=== PATIENT | female | born 1965 | race Two or more races ===

== ENCOUNTER 2017-09-03 12:14 | Emergency (ER) | payer OTHER ==
[~2017-09-03] VITALS: Ht 162.6 cm; Wt 54.9 kg
--- NOTE | 2017-09-03 12:29 | NUR ---
JANIE FROM [facility] DT NOSE AND LOWER LIP WOUNDS FROM UNKNOWN ETIOLOGY. PER PT SHE HAD THE WPUND DRYNESS AND WOUND X 3 DAYS AND NOSE BRIDGE WOUND SINCE YESTERDAY. PT DENIES PAIN, CO ITCHINESS. PT IS AFEBRILE. VSS
--- NOTE | 2017-09-03 12:30 | NUR ---
TICKET CLERK AT BEDSIDE
--- NOTE | 2017-09-03 12:31 | NUR ---
PT WAS TAKEN TO CT
[2017-09-03 12:38] LABS: BASOPHILS % (AUTO) 0.7 % (0.0-2.0); EOSINOPHILS # (AUTO) 0.1 /CMM (0.0-0.7); EOSINOPHILS % (AUTO) 0.9 % (0.0-6.0); HEMATOCRIT 32 % (33-45); HEMOGLOBIN 10.9 g/dL (11.5-14.8); LYMPHOCYTES # (AUTO) 1.1 /CMM (0.8-4.8); LYMPHOCYTES % (AUTO) 17.2 % (20.0-44.0); MEAN CORPUSCULAR HEMOGLOBIN 33 PG (26.0-33.0); MEAN CORPUSCULAR HGB CONC 34 g/dl (31.0-36.0); MEAN CORPUSCULAR VOLUME 97 fL (82-100); MONOCYTES # (AUTO) 0.7 /CMM (0.1-1.30); NEUTROPHILS # (AUTO) 4.6 /CMM (1.8-8.9); NEUTROPHILS % (AUTO) 70.2 % (43.0-81.0); PLATELET COUNT (AUTO) 144 /CMM (150-450); RDW COEFFICIENT OF VARIATION 13.8 (11.5-15.0); RED BLOOD CELL COUNT(AUTO) 3.29 MIL/uL (4.0-5.2); WHITE BLOOD COUNT (AUTO) 6.5 K/uL (4.3-11.0)
[2017-09-03 12:55] LABS: CALCIUM, SERUM 8.2 mg/dL (8.5-10.1); CREATININE 0.5 mg/dL (0.6-1.3); POTASSIUM 3.4 mmol/L (3.5-5.1)
[2017-09-03 13:27] VITALS: BP 120/80
--- NOTE | 2017-09-03 13:27 | NUR ---
Patient discharged to home in stable condition. Written and verbal after care instructions given. Patient verbalizes understanding of instruction.
== END 2017-09-03 13:28 | disposition home or self-care (01) ==
LOC: ER 12:17
DX: S00.31XA Abrasion of nose, initial encounter (principal); R51 Headache; X58.XXXA Exposure to other specified factors, initial encounter; Y93.89 Activity, other specified; Y92.89 Other specified places as the place of occurrence of the external cause; Y99.8 Other external cause status
CPT/HCPCS: 36415; 70450-TC; 80048-TC; 85025-TC; A4606; Z7610

== ENCOUNTER 2019-09-13 14:20 | Inpatient (IN) | payer OTHER ==
[~2019-09-13] VITALS: Ht 157.5 cm; Wt 51.7 kg
--- NOTE | 2019-09-13 14:28 | NUR ---
[id number], homeless, c/o abd pain and constipation x 5 days. ABDOMEN IS SOFT AND DISTENDED, REPORTS PAIN LEVEL 10/10, OBVIOUS DISCOMFORT. RR EVEN AND UNLABORED ON RA. NO ACUTE DISTRESS NOTED. LANGUAGE BARRIER, BUT UNDERSTANDS SOME TAMAZIGHT. APPEARS DISHEVELED AND UNKEMPT. ON MONITOR, MADE COMFORTABLE, AND READY FOR EVAL.
[2019-09-13] MEDS ORDERED: BISACODYL SUPP (10 MG) 10 MG/SUPP.RECT SUPP.RECT RC ONE ×2 (14:50→15:00)
[2019-09-13] MEDS ORDERED: IV NS 0.9% 1,000 ML BAG IV ONE (15:00)
[2019-09-13] MEDS ORDERED: NA PHOS,M-B/NA PHOS,DI-BA 1 EA ENEMA RC ONE ×2 (15:00→15:43)
--- NOTE | 2019-09-13 15:07 | NUR ---
IV BECAME DISLODGED. Catheter intact and site benign. Pressure and 4x4 applied to site. No bleeding noted.
--- NOTE | 2019-09-13 15:15 | NUR ---
IV ACCESS OBTAINED, BLOOD DRAWN, IVF INFUSING. PT SUNDAY WELL.
[2019-09-13 15:21] LABS: BASOPHILS # (AUTO) 0.1 /CMM (0.0-0.2); BASOPHILS % (AUTO) 0.9 % (0.0-2.0); HEMATOCRIT 36 % (33-45); HEMOGLOBIN 11.9 g/dL (11.5-14.8); LYMPHOCYTES # (AUTO) 0.8 /CMM (0.8-4.8); LYMPHOCYTES % (AUTO) 9.9 % (20.0-44.0); MEAN CORPUSCULAR HGB CONC 33 g/dl (31.0-36.0); MEAN CORPUSCULAR VOLUME 109 fL (82-100); MONOCYTES # (AUTO) 0.3 /CMM (0.1-1.30); MONOCYTES % (AUTO) 4.4 % (2.0-12.0); NEUTROPHILS # (AUTO) 6.4 /CMM (1.8-8.9); NEUTROPHILS % (AUTO) 83.8 % (43.0-81.0); PLATELET COUNT (AUTO) 123 /CMM (150-450); WHITE BLOOD COUNT (AUTO) 7.7 K/uL (4.3-11.0)
[2019-09-13 15:50] LABS: MAGNESIUM 1.1 mg/dL (1.8-2.4)
[2019-09-13 15:52] LABS: CALCIUM, SERUM 8.4 mg/dL (8.5-10.1); CREATININE 0.6 mg/dL (0.6-1.3); POTASSIUM 3.2 mmol/L (3.5-5.1)
[2019-09-13 15:58] LABS: ALBUMIN 2.6 g/dL (3.4-5.0); BAND % (MANUAL) 3 % (0.0-5.0); BILIRUBIN,DIRECT 0.4 mg/dL (0.0-0.2); BILIRUBIN,TOTAL 0.5 mg/dL (0.2-1.0); EOSINOPHILS % (MANUAL) 1 % (0-4); LYMPHOCYTES % (MANUAL) 13 % (16-48); MONOCYTES % (MANUAL) 4 % (0-11.0); NEUTROPHILS % (MANUAL) 79 (42-76)
--- NOTE | 2019-09-13 16:15 | NUR ---
IV DISLODGED. Catheter intact and site benign. Pressure and 4x4 applied to site. No bleeding noted. MD AWARE
--- NOTE | 2019-09-13 16:33 | NUR ---
NEW IV PLACED. PT EDUCATED TO BE MINDFUL WHEN MOVING AROUND IN ORDER TO PREVENT ANOTHER DISLODGE
[2019-09-13] MEDS: Magnesium 1GM/D5W 100ML PREMIX 100 ML IV SCH ×2 (16:58→18:19)
--- NOTE | 2019-09-13 17:04 | NUR ---
PT TAKEN TO RADIOLOGY VIA [facility]
--- NOTE | 2019-09-13 17:30 | NUR ---
PAGED [facility].
[2019-09-13] MEDS ORDERED: Magnesium 1GM/D5W 100ML PREMIX 100 ML IV ONE (17:40)
[2019-09-13] MEDS: POTASSIUM CL. PREMIX PERIPHER. 50 ML IV SCH ×3 (18:10→20:44)
[2019-09-13 18:20] LABS: APPEARANCE,URINE CLEAR (CLEAR); BILIRUBIN,URINE NEGATIVE (NEGATIVE); BLOOD, URINE TRACE Ery/uL (NEGATIVE); COLOR,URINE YELLOW (YELLOW); KETONES,URINE NEGATIVE (NEGATIVE); LEUKOCYTE ESTERASE ,URINE NEGATIVE (NEGATIVE); NITRITE, URINE NEGATIVE (NEGATIVE); PH,URINE 6.5 (5.0-8.0); PROTEIN,URINE NEGATIVE (NEGATIVE); UGLUCOSE NEGATIVE (NEGATIVE)
[2019-09-13 18:34] LABS: BACTERIA,URINE None seen /HPF (None Seen); RBC,URINE 0-2 /HPF (0-2); SQUAMOUS EPITHELIAL CELL,UR Few /HPF (None Seen); WBC,URINE NONE SEEN /HPF (0-3)
--- NOTE | 2019-09-13 18:35 | NUR ---
SPOKE WITH BUTTER GRADER AND GAVE UPDATE ON PT CONDITION
[2019-09-13] MEDS ORDERED: Z GUARD REMEDY 2 OZ OINT TP PRN (19:00)
[2019-09-13] MEDS ORDERED: ONDANSETRON HCL/PF 4 MG/2 ML VIAL IVP PRN (19:00)
[2019-09-13] MEDS ORDERED: MAG HYDROX/AL HYDROX/SIMETH 30 ML UDC PO PRN (19:00)
[2019-09-13] MEDS ORDERED: ACETAMINOPHEN 325 MG TABLET PO PRN (19:00)
[2019-09-13] MEDS ORDERED: MAGNESIUM HYDROXIDE 30 ML UDC PO PRN (19:00)
--- NOTE | 2019-09-13 19:50 | NUR ---
REPORT GIVEN TO NASRA CAT FOR 119-1
[2019-09-13 20:10] VITALS: BP 121/88
--- NOTE | 2019-09-13 20:20 | NUR ---
RN YARI NOTES, ADMITTED 54 YO FEMALE ADMITTED FROM ER DEPARTMENT ACCOMPANIED BY 2 NURSES VIA STRETCHER, UNDER MEDICAL SERVICES OF DR SULLIVAN, WITH DX OF ELECTROLYTES ABNORMALITIES AND PROCTITIS, PATIENT AWAKE, A/O ABLE TO VERBALIZED NEEDS AND CONCERNS, DENIES ANY MEDICAL HX, NOTED WITH ABDOMEN SOFT AND NON TENDER, BUT SLIGHTLY DISTENDED, C/O ABDOMINAL PAIN, 4/10, 121/88, 110, 19, 99% RA, STATES SHE CAN'T WALK ANYMORE, FOR PAIN IN THE FEET, BED BATH GIVEN UPON ADMISSION AND NOTED VERY SMALL LIQUID BM, CALL LIGHT W/I REACH, BED LOCKED IN LOW POSITION, WILL CONTINUE TO MONITOR CLOSELY.
--- NOTE | 2019-09-13 20:44 | NUR ---
RN NOTES, LAST BAG OF KCL ADMINISTERED AT THIS TIME.
[2019-09-13] MEDS: HYDROCODONE/APAP 5/325MG 1 EACH TABLET PO PRN (22:41)
[2019-09-14] VITALS: BP 151/90
[2019-09-14] MEDS: ZOLPIDEM TARTRATE 5 MG TABLET PO PRN (00:08)
[2019-09-14 04:00] VITALS: BP 152/100
[2019-09-14] MEDS: HYDROCODONE/APAP 5/325MG 1 EACH TABLET PO PRN (04:07)
[2019-09-14] MEDS: hydrALAZINE HCL IV 20 MG VIAL IV PRN ×2 (05:33→10:25)
--- NOTE | 2019-09-14 05:35 | NUR ---
RN NOTES, PATIENT NOTED WITH BLOOD PRESSURE 197/112, RECHECKED AND 178/110, INFORMED JOSEPHINE PROOFSHEET CORRECTOR AND RECEIVED A NEW ORDER FOR HYDRALAZINE IVP 10MG Q4HRS PRN FPR SBP >160, NOTED AND CARRIED OUT.
--- NOTE | 2019-09-14 06:30 | NUR ---
RN NOTES, AFTER RECHECK OF BP, BP NOTED 150/88, 105, WILL CONTINUE TO MONITOR CLOSELY, OTHERWISE NO SIGNIFICANT CHANGE DURING THE NIGHT, WILL ENDORSE CONTINUITY OF CARE TO ONCOMING NURSE.
[2019-09-14 06:41] LABS: BASOPHILS % (AUTO) 0.2 % (0.0-2.0); EOSINOPHILS % (AUTO) 0.2 % (0.0-6.0); HEMATOCRIT 36 % (33-45); LYMPHOCYTES # (AUTO) 0.8 /CMM (0.8-4.8); MEAN CORPUSCULAR HGB CONC 33 g/dl (31.0-36.0); MEAN CORPUSCULAR VOLUME 106 fL (82-100); MONOCYTES # (AUTO) 0.8 /CMM (0.1-1.30); MONOCYTES % (AUTO) 6.3 % (2.0-12.0); NEUTROPHILS # (AUTO) 11.1 /CMM (1.8-8.9); NEUTROPHILS % (AUTO) 87.3 % (43.0-81.0); PLATELET COUNT (AUTO) 111 /CMM (150-450); RED BLOOD CELL COUNT(AUTO) 3.43 MIL/uL (4.0-5.2); WHITE BLOOD COUNT (AUTO) 12.7 K/uL (4.3-11.0)
[2019-09-14 07:08] LABS: ALBUMIN 2.7 g/dL (3.4-5.0); BILIRUBIN,DIRECT 0.7 mg/dL (0.0-0.2); BILIRUBIN,TOTAL 1.2 mg/dL (0.2-1.0); CALCIUM, SERUM 8.3 mg/dL (8.5-10.1); CREATININE 0.5 mg/dL (0.6-1.3); PHOSPHORUS 3.4 mg/dL (2.5-4.9); POTASSIUM 3.5 mmol/L (3.5-5.1)
[2019-09-14 07:12] LABS: MAGNESIUM 1.1 mg/dL (1.8-2.4)
[2019-09-14 07:22] LABS: THYROID STIMULATING HORMONE 4.802 uIU/mL (0.358-3.74)
--- NOTE | 2019-09-14 07:30 | NUR ---
COUPON COLLECTION CLERK OPENING NOTE RECEIVED BEDSIDE REPORT. PT AWAKE IN BED, ALERT AND ORIENTED X 2, SINUS RHYTHM ON TELE MONITOR, ON ROOM AIR, SATURATING WELL, RESPIRATIONS EVEN AND UNLABORED, NO SIGNS OF RESPIRATORY DISTRESS NOTED. IV SITE ON RIGHT AC G20 INTACT, PATENT, WITH HEP LOCK IN PLACE. IV SITE ON LEFT AC G20 INTACT, PATENT, WITH HEP LOCK IN PLACE. BED IN LOW POSITION, LOCKED, CALL LIGHT WITHIN REACH.
[2019-09-14] MEDS: PANTOPRAZOLE 40 MG TABLET.DR PO SCH (07:34)
[2019-09-14 08:00] VITALS: BP 160/93
[2019-09-14] MEDS: Magnesium 1GM/D5W 100ML PREMIX 100 ML IV SCH ×4 (09:14→12:37)
[2019-09-14] MEDS ORDERED: MAGNESIUM CITRATE 296 ML BOTTLE PO ONE (13:00)
[2019-09-14] MEDS ORDERED: NA PHOS,M-B/NA PHOS,DI-BA 1 EA ENEMA RC PRN (13:00)
[2019-09-14] MEDS ORDERED: BISACODYL (5 MG) 5 MG TABLET.DR PO PRN (13:00)
[2019-09-14] MEDS: MULTIVITAMINS,THERAGRAN 1 UDTAB TABLET PO SCH (13:24)
[2019-09-14] MEDS: THIAMINE HCL 100 MG TABLET PO SCH (13:24)
[2019-09-14] MEDS: FOLIC ACID 1 MG TABLET PO SCH (13:25)
--- NOTE | 2019-09-14 14:17 | NUR ---
Social service consult requested by MD for homelessness. Per MD notes and chart review, pt is a 54-year-old female, who presented to the ER because of diffuse abdominal pain and constipation for the last 5 days, as well as symptoms previously. She denies fever, chills, neck pain, chest pain, dyspnea, vomiting, dysuria. Pt was found to have stercoral proctitis per CT abdomen/pelvis as noted as well as esophagitis and also found to have magnesium of 1.1 as well as potassium 3.4. SURGERY TECHNICIAN met with the pt bedside. Pt's boyfriend Guicho was bedside. SURGERY TECHNICIAN introduced self and purpose of the visit. Pt gave permission to speak with her with boyfriend present. Pt states she is homeless and has been for a longtime. Pt appears disheveled and unkempt. Pt reports to live on the streets with her boyfriend. [facility] offered pt winter penitentiary placement, however pt declined stating, " too many people in the penitentiary." Both pt and boyfriend stated, they will go back to the streets. Pt reports she is independent with most ADL's. However, pt states she is unable to walk and is having trouble walking. SURGERY TECHNICIAN informed pt, she will refer her to physical therapy. Pt. receives GR and Food stamps monthly. Pt denies drug use. Pt drinks 1/2 a bottle of vodka daily. Pt. reports, she smokes 10 cigarettes per day but when stressed, pt reports to smoke a pack a day. Pt denies any psychiatric diagnosis and hospitalizations. Pt denies suicidal and homicidal ideations and visual/auditory hallucinations at this time. [facility] provided pt with active listening and supportive counseling. [facility] provided pt with homeless packet which includes [facility] [id number] Winter Fpc program list, [facility] [place], [address] ; [facility] Homeless Resource Directory which includes food stamps, transitional housing, showers and hot meals etc; Mental Health clinics such as [facility] ; [facility] ; Health clinics;[facility] and Addiction resources such as [facility], ; [facility] Substance Abuse Hotline and [facility] . Homeless patient waiver form was placed in pt's chart for pt. to sign upon discharge. Pt declined TAP card. SURGERY TECHNICIAN updated JAIME CRN Kayleigh regarding pt's discharge plan. SURGERY TECHNICIAN also updated cyanide case hardener Emani and JAIME CRN Kayleigh regarding pt stating she is unable to walk and for pt to have a Physical Therapy consult. No other social service needs are requested at this time. SURGERY TECHNICIAN is available, if needed.
[2019-09-14 16:00] VITALS: BP 138/90
[2019-09-14] MEDS: CHLORDIAZEPOXIDE HCL 25 MG CAPSULE PO SCH (16:15)
--- NOTE | 2019-09-14 19:30 | NUR ---
RN NOTES, PATIENT AWAKE IN BED AT THIS TIME WATCHING TV, AT RA BREATHING EVEN AND UNLABORED, NO SOB/ACUTE RESPIRATORY DISTRESS NOTED AT THIS TIME, NO C/O PAIN OR DISCOMFORT AT THIS TIME, IV ACCESS IN RIGHT AND LEFT AC 20G S/L, PATENT AND INTACT, ALL SAFETY MEASURES IMPLEMENTED, BED LOCKED, AND LOWEST POSITION, SIDE RAILS UP X3, CALL LIGHT WITHIN REACH, WILL CONTINUE TO MONITOR CLOSELY.
[2019-09-14 20:00] VITALS: BP 147/88
[2019-09-15] MEDS: ZOLPIDEM TARTRATE 5 MG TABLET PO PRN (00:52)
[2019-09-15 04:00] VITALS: BP_SYST 108; BP_DIAS 56; BP_DIAS 86
[2019-09-15 06:44] LABS: BASOPHILS % (AUTO) 0.3 % (0.0-2.0); EOSINOPHILS % (AUTO) 1.7 % (0.0-6.0); HEMATOCRIT 35 % (33-45); HEMOGLOBIN 11.5 g/dL (11.5-14.8); LYMPHOCYTES # (AUTO) 0.6 /CMM (0.8-4.8); MEAN CORPUSCULAR HGB CONC 33 g/dl (31.0-36.0); MEAN CORPUSCULAR VOLUME 107 fL (82-100); MONOCYTES # (AUTO) 0.6 /CMM (0.1-1.30); MONOCYTES % (AUTO) 7.2 % (2.0-12.0); NEUTROPHILS # (AUTO) 7.2 /CMM (1.8-8.9); NEUTROPHILS % (AUTO) 83.8 % (43.0-81.0); PLATELET COUNT (AUTO) 96 /CMM (150-450); RED BLOOD CELL COUNT(AUTO) 3.26 MIL/uL (4.0-5.2); WHITE BLOOD COUNT (AUTO) 8.6 K/uL (4.3-11.0)
--- NOTE | 2019-09-15 07:00 | NUR ---
RN NOTES, PATIENT SLEEPING AT THIS TIME, NO SOB/ACUTE DISTRESS NOTED, NO C/O PAIN OR DISCOMFORT, 3 BM LAST NIGHT, NO SIGNIFICANT CHANGE DURING THE NIGHT, WILL ENDORSE CONTINUITY OF CARE TO ONCOMING NURSE.
[2019-09-15 07:24] LABS: CALCIUM, SERUM 8.5 mg/dL (8.5-10.1); CREATININE 0.5 mg/dL (0.6-1.3); MAGNESIUM 1.9 mg/dL (1.8-2.4); PHOSPHORUS 2.7 mg/dL (2.5-4.9); POTASSIUM 3.6 mmol/L (3.5-5.1)
[2019-09-15] MEDS: PANTOPRAZOLE 40 MG TABLET.DR PO SCH (07:55)
[2019-09-15] MEDS ORDERED: NA PHOS,M-B/NA PHOS,DI-BA 1 EA ENEMA RC PRN (07:57)
[2019-09-15 08:00] VITALS: BP 143/101
--- NOTE | 2019-09-15 08:00 | NUR ---
MS RN Notes Received patient in bed from second shift supervisor. Patient is alert and oriented to person and place. REGGIE 3mm. On report hand off informed of patient ETOH WD. AM BP at 0800 was 143/101 P. 115 and second reading 158/94 P. 105. Provider informed. Patient is on bedrest. Skin intact with some redness noted in perineum. Blanchable. Client is a fall risk with bed alarm set. She is on cardiac diet. BM x1 in AM. S1 S2 IV LAC 20g flushing well, saline locked. VS Q8H. Bed in lowest position, call light with reach, all measures taken to ensure client safety. Will continue to monitor.,
--- NOTE | 2019-09-15 08:03 | NUR ---
WOUND CARE CONSULT: PT PRESENTS WITH MULTIPLE AREAS OF BRUISING/DISCOLORATION PRESENT ON ADMISSION. PT ABLE TO TURN AND REPOSITION IN BED AND IS MOSTLY CONTINENT AT THIS TIME. RECOMMENDATIONS MADE FOR SKIN PROTECTION. DISCUSSED WITH NURSING STAFF. WILL SEE PRN. BYNUM IN AGREEMENT WITH PLAN OF CARE. Addendum: 09/15/19 at 0805 by TUCKER ROSA WNDNU Amended: Links added.
[2019-09-15 08:08] LABS: LYMPHOCYTES % (MANUAL) 8 % (16-48); MONOCYTES % (MANUAL) 5 % (0-11.0); NEUTROPHILS % (MANUAL) 87 (42-76)
[2019-09-15] MEDS: MULTIVITAMINS,THERAGRAN 1 UDTAB TABLET PO SCH (09:12)
[2019-09-15] MEDS: THIAMINE HCL 100 MG TABLET PO SCH (09:12)
[2019-09-15] MEDS: CHLORDIAZEPOXIDE HCL 25 MG CAPSULE PO SCH ×2 (09:13→17:29)
[2019-09-15] MEDS: FOLIC ACID 1 MG TABLET PO SCH (09:13)
--- NOTE | 2019-09-15 09:20 | NUR ---
MS RN Notes Provider Omari Colón notified for initial BP of 143/101 P. 115. And second measurement half hour later of 158/94 P.105. No orders received at this time. Awaiting reply.
--- NOTE | 2019-09-15 10:00 | NUR ---
MS RN Notes BP rechecked 140/89 P.101. Patient asymptomatic.
[2019-09-15] MEDS ORDERED: IV NS 0.9% 1,000 ML IV PRN (11:00)
[2019-09-15 12:00] VITALS: BP 139/92
[2019-09-15] MEDS ORDERED: CLONIDINE HCL 0.1 MG TABLET PO PRN (16:30)
[2019-09-15 17:23] VITALS: BP 136/87
--- NOTE | 2019-09-15 19:08 | NUR ---
MS RN Closing Notes Patient is alert and oriented x3. Per report and conversation with LINE TECHNICIAN, client is having alcohol withdrawals. BP labile in AM, LINE TECHNICIAN Omari Colón notified. BP issue resolved after receiving 0900 dose of Librium. On or around 1200 patient IV seen at bedside table, visible bruise at IV site, she insisted she was going home and that the charge nurse D/Cd IV. LINE TECHNICIAN Informed. Per charge nurse advice IV not continued again. LINE TECHNICIAN to switch all medication to PO. Patient tolerating drinking water at this time with no NV. Patient is currently in bed, boyfriend is at bedside. No s/s of acute distress. No tremors visible in hands. No complains of pain or abnormal sensations. Bed in lowest position, call light within reach. All measures taken to ensure client safety. Will endorse care to oncoming shift.
[2019-09-15 20:00] VITALS: BP 144/85
[2019-09-16 04:00] VITALS: BP 152/96
[2019-09-16 06:43] LABS: BASOPHILS % (AUTO) 0.4 % (0.0-2.0); EOSINOPHILS % (AUTO) 3.4 % (0.0-6.0); HEMATOCRIT 35 % (33-45); HEMOGLOBIN 11.4 g/dL (11.5-14.8); LYMPHOCYTES # (AUTO) 0.7 /CMM (0.8-4.8); LYMPHOCYTES % (AUTO) 9.7 % (20.0-44.0); MEAN CORPUSCULAR HGB CONC 33 g/dl (31.0-36.0); MEAN CORPUSCULAR VOLUME 107 fL (82-100); MONOCYTES # (AUTO) 0.6 /CMM (0.1-1.30); MONOCYTES % (AUTO) 8.4 % (2.0-12.0); NEUTROPHILS # (AUTO) 5.4 /CMM (1.8-8.9); NEUTROPHILS % (AUTO) 78.1 % (43.0-81.0); PLATELET COUNT (AUTO) 103 /CMM (150-450); RED BLOOD CELL COUNT(AUTO) 3.23 MIL/uL (4.0-5.2); WHITE BLOOD COUNT (AUTO) 6.9 K/uL (4.3-11.0)
--- NOTE | 2019-09-16 06:51 | NUR ---
MS RN NOTES AWAKE & RESPONSIVE. NOT IN ANY DISTRESS. NO SOB NOTED. DENIES ANY PAIN OR DISCOMFORT AT THIS TIME. AM CARE DONE. MONITORED ACCORDINGLY. CALL LIGHT WITHIN REACH. BED IN LOWEST POSITION. SR UP X 2 WITH BED ALARM ON FOR SAFETY. WILL ENDORSE TO NEXT SHIFT.
[2019-09-16 07:01] LABS: CALCIUM, SERUM 8.7 mg/dL (8.5-10.1); CREATININE 0.5 mg/dL (0.6-1.3); POTASSIUM 3.8 mmol/L (3.5-5.1)
--- NOTE | 2019-09-16 07:50 | NUR ---
RN OPENING NOTE: RECEIVED PATIENT IN BED THIS MORNING. PATIENT IS ALERT X3, RESPONDS APPROPRIATELY. NO SIGNS OF RESPIRATORY DISTRESS NOTED, SATING WELL ON RA. C/O 7/10 PAIN. SAFETY MEASURES IMPLEMENTED, BED IN LOWEST POSITION, LOCKED, SIDE RAILS UP X2, CALL LIGHT WITHIN REACH. WILL CONTINUE TO MONITOR PATIENT FOR CHANGES.
[2019-09-16 08:00] VITALS: BP 146/91
[2019-09-16] MEDS: CHLORDIAZEPOXIDE HCL 25 MG CAPSULE PO SCH ×2 (08:28→17:02)
[2019-09-16] MEDS: PANTOPRAZOLE 40 MG TABLET.DR PO SCH (08:28)
[2019-09-16] MEDS: FOLIC ACID 1 MG TABLET PO SCH (08:28)
[2019-09-16] MEDS: THIAMINE HCL 100 MG TABLET PO SCH (08:28)
[2019-09-16] MEDS: MULTIVITAMINS,THERAGRAN 1 UDTAB TABLET PO SCH (08:28)
[2019-09-16] MEDS: HYDROCODONE/APAP 5/325MG 1 EACH TABLET PO PRN ×2 (08:29→15:04)
[2019-09-16] MEDS ORDERED: LORA-259 PO (10:23)
[2019-09-16] MEDS ORDERED: PANT40TA2 PO (10:23)
[2019-09-16] MEDS ORDERED: MULT-24 PO (10:23)
[2019-09-16] MEDS ORDERED: Folic Acid PO (10:23)
[2019-09-16] MEDS ORDERED: Thiamine HCL PO (10:23)
[2019-09-16] MEDS ORDERED: BISA5TAB10 PO (10:23)
[2019-09-16] MEDS ORDERED: CLON0.1T14 PO (10:23)
[2019-09-16 16:00] VITALS: BP 137/93
[2019-09-16 17:44] VITALS: BP 137/93
--- NOTE | 2019-09-16 17:54 | NUR ---
PATIENT IS SUPPOSED TO BE GETTING DC TODAY TO SNF. AT FIRST PATIENT WAS OK WITH THE IDEA, I GOT HER DC PAPERWORK READY, PATIENT STATED SHE DOESNT WANT TO GO TO A SNF AND INFORMED CM SHE WOULD RATHER DISCUSS HER OPTIONS WITH HER BOYFRIEND THAT IS COMING TO THE HOSPITAL. WILL ENDORSE TO ONCROSETTE MILLER THAT WE ARE AWAITING AN ANSWER ABOUT PATIENT'S DECISION PERTAINING DC.
--- NOTE | 2019-09-16 18:42 | NUR ---
RN CLOSING NOTE: PATIENT IS CURRENTLY RESTING IN BED. NO SIGNS OF RESPIRATORY DISTRESS NOTED. NO SIGNS OF ACUTE DISTRESS NOTED. PATIENT IS FOR DC BUT AWAITING BOYFRIEND TO MAKE DECISION ON WHETHER PATIENT WANTS TO DC TO SNF OR NOT. WILL ENDORSE TO ONCOMING RN THAT THE ENTIRE DC WAS COMPLETE BUT PATIENT WANTED TO TAKE THE PICTURES A LITTLE LATER, WILL INFORM ONCOMING SHIFT TO DO SI. SAFETY MEASURES IMPLEMENTED, BED IN LOWEST POSITION, LOCKED, SIDE RAILS UP X2, CALL LIGHT WITHIN REACH. WILL ENDORSE TO ONCOMING SHIFT RN FOR CONTINUITY OF CARE.
--- NOTE | 2019-09-16 19:52 | NUR ---
RN NOTE RECEIVED PATIENT STANDING AND TALKING WITH FRIENDS, A/OX4. ON ROOMAIR, NO S/S OF SOB OR ACUTE DISTRESS NOTED. PER REPORT, PATIENT IS FOR DC TO SNF HOWEVER REFUSING TO GO AND STATED "I WANT TO GO TO MY FRIEND'S HOUSE NOT ASSISTED" DR GLOVER AND STATED "IF PATIENT CAN WALK AND ITS AMA" EXPLAINED TO PATIENT SHE NEEDS TO SIGN AMA FORM IF SHE STILL REFUSES TO GO TO SNF, EDUCATED PATIENT TO CALL 911 OR GO TO ER IN CASE OF EMERGENCY OR WORSENING S/S, PATIENT VERBALIZED UNDERSTANDING. ALL BELONGINGS WITH PATIENT. AMA FORM SIGNED. PATIENT LEFT UNIT WITH FRIENDS, FRIEND STATED SHE HAS A CAR AND WILL DRIVE PATIENT.
== END 2019-09-16 19:50 | disposition left against medical advice (07) | DRG 254 ==
LOC: ER 14:21 → TELE1 19:56 → MEDSG1 09-14 11:47
PROVIDERS: ADMIT Student in an Organized Health Care Education/Training Program; ATTEND Nurse Practitioner Acute Care
DX: K62.89 Other specified diseases of anus and rectum (principal); D69.6 Thrombocytopenia, unspecified; E87.0 Hyperosmolality and hypernatremia; E44.0 Moderate protein-calorie malnutrition; E83.42 Hypomagnesemia; E88.09 Other disorders of plasma-protein metabolism, not elsewhere classified; E87.6 Hypokalemia; Z59.0 Homelessness; K59.00 Constipation, unspecified; F17.210 Nicotine dependence, cigarettes, uncomplicated; R74.0 Nonspecific elevation of levels of transaminase and lactic acid dehydrogenase [LDH]; K76.0 Fatty (change of) liver, not elsewhere classified; F10.20 Alcohol dependence, uncomplicated; N75.0 Cyst of Bartholin's gland; K20.9 Esophagitis, unspecified; R53.1 Weakness; I70.0 Atherosclerosis of aorta; K44.9 Diaphragmatic hernia without obstruction or gangrene; Z68.20 Body mass index [BMI] 20.0-20.9, adult
CPT/HCPCS: 36415; 80048-TC; 80061-TC; 80076-TC; 80305; 81000-TC; 83690-TC; 83735-TC; 84100-TC; 84439-TC; 84443-TC; 85025-TC; 87081-TC; 97110-TC; 97116-TC; 97530-TC; G0378; G0480; J0360; J2405; J3475; J3480; J7030